=== PATIENT | male | born 1990 | race Two or more races ===

== ENCOUNTER 2019-03-11 14:41 | Emergency (ER) | payer BC ==
[~2019-03-11] VITALS: Ht 172.7 cm; Wt 71.2 kg
[2019-03-11 19:49] LABS: BASOPHILS # (AUTO) 0.05 x10^3/uL (0-0.1); BASOPHILS % (AUTO) 1 % (0-1); EOSINOPHILS # (AUTO) 0.05 x10^3/uL (0-0.4); EOSINOPHILS % (AUTO) 1 % (1-7); LYMPHOCYTES # (AUTO) 1.14 x10^3/uL (1-3.4); LYMPHOCYTES % (AUTO) 11 % (22-44); MD NO; MEAN CORPUSCULAR HGB CONC 33.1 g/dL (33.2-36.2); MEAN CORPUSCULAR VOLUME 90.8 fL (81-97); MEAN PLATELET VOLUME 10.1 fL (7.4-10.4); MONOCYTES # (AUTO) 0.51 x10^3/uL (0.2-0.8); MONOCYTES % (AUTO) 5 % (2-9); NEUTROPHILS # (AUTO) 8.37 x10^3/uL (1.8-6.8); NEUTROPHILS % (AUTO) 83 % (42-75); PLATELET COUNT 195 x10^3/uL (130-400); RED BLOOD COUNT 5.44 x10^6/uL (4.38-5.82); RED CELL DISTRIBUTION WIDTH 14.6 % (9.4-14.8)
[2019-03-11 20:00] LABS: ALBUMIN 4.6 g/dL (3.4-5.0); ANION GAP 7 mmol/L (5-15); CALCIUM 9.6 mg/dL (8.5-10.1); CHLORIDE 107 mmol/L (98-107); CREATININE 1.12 mg/dL (0.7-1.3)
[2019-03-11 20:04] LABS: TROPONIN I < 0.015 ng/mL (0.000-0.045)
--- NOTE | 2019-03-11 21:40 | NUR ---
[facility] PT C/O PALPITATIONS AFTER WORKING OUT FOR THE LAST FEW DAYS. PT DENIES CP. PT BEING EXAMINED BY DR. TIWARI.
[2019-03-11 21:41] VITALS: BP 115/85
== END 2019-03-11 21:54 | disposition other institution (70) ==
LOC: ED 21:48
DX: R00.2 Palpitations (principal); R06.00 Dyspnea, unspecified
CPT/HCPCS: 36415; 80048; 82040; 84484; 85025; 93005; 99284

== ENCOUNTER 2019-06-16 15:00 | Emergency (ER) | payer BC ==
[~2019-06-16] VITALS: Ht 172.7 cm; Wt 67.5 kg
[2019-06-16 15:54] LABS: BASOPHILS # (AUTO) 0.03 x10^3/uL (0-0.1); BASOPHILS % (AUTO) 1 % (0-1); EOSINOPHILS # (AUTO) 0.04 x10^3/uL (0-0.4); EOSINOPHILS % (AUTO) 1 % (1-7); LYMPHOCYTES % (AUTO) 15 % (22-44); MD NO; MEAN CORPUSCULAR HEMOGLOBIN 30.1 pg (27.5-34.5); MEAN CORPUSCULAR HGB CONC 33.7 g/dL (33.2-36.2); MEAN CORPUSCULAR VOLUME 89.5 fL (81-97); MEAN PLATELET VOLUME 10.5 fL (7.4-10.4); MONOCYTES # (AUTO) 0.31 x10^3/uL (0.2-0.8); MONOCYTES % (AUTO) 5 % (2-9); NEUTROPHILS # (AUTO) 5.33 x10^3/uL (1.8-6.8); NEUTROPHILS % (AUTO) 79 % (42-75); PLATELET COUNT 176 x10^3/uL (130-400); RED BLOOD COUNT 5.68 x10^6/uL (4.38-5.82)
[2019-06-16 15:58] LABS: ALANINE AMINOTRANSFERASE 19 U/L (12-78); ALBUMIN 4.6 g/dL (3.4-5.0); ANION GAP 8 mmol/L (5-15); CALCIUM 9.7 mg/dL (8.5-10.1); CHLORIDE 106 mmol/L (98-107); CREATININE 1.21 mg/dL (0.7-1.3)
[2019-06-16 16:00] LABS: ALKALINE PHOSPHATASE 82 U/L (45-117); BILIRUBIN,TOTAL 2.5 mg/dL (0.2-1.0); TOTAL PROTEIN 8.7 g/dL (6.4-8.2)
--- NOTE | 2019-06-16 16:07 | NUR ---
PT IN US. WILL BE BROUGHT TO ROOM 9 AFTER.
--- NOTE | 2019-06-16 16:35 | NUR ---
PT IN ROOM FOR US.
--- NOTE | 2019-06-16 16:45 | NUR ---
THIS IS A 29 YO M W/ C/O STERNAL AND LT SIDED DISCOMFORT THAT STARTED FRIDAY. PT REPORTS HE WENT TO AND THEY TOLD HIM HE HAD AN ABNORMAL EKG. IN ROOM AND REPORTS HIS EKG HERE IS NORMAL. PT FAMILY ANXIOUS ABOUT RESULTS. PT RESTING ON [employer] W/ CALL LIGHT IN REACH, CONNECTED TO MONITORING. DENIES FURTHER NEEDS AT THIS TIME.
[2019-06-16 16:47] VITALS: BP 130/85
--- NOTE | 2019-06-16 17:13 | NUR ---
URINE COLLECTED AND SENT TO LAB.
[2019-06-16 17:16] LABS: TROPONIN I < 0.015 ng/mL (0.000-0.045)
[2019-06-16 17:19] LABS: MICROSCOPIC NOT IND
[2019-06-16 17:23] LABS: CULTURE INDICATED? NO
--- NOTE | 2019-06-16 17:38 | NUR ---
ALL TESTS RESULTED. PT IS UP FOR RECHECK AT THIS TIME.
--- NOTE | 2019-06-16 17:47 | NUR ---
TO COME TALK TO PT BEFORE DC.
--- NOTE | 2019-06-16 18:53 | NUR ---
REVIEWED RAD AND LAB RESULTS EXTENSIVELY W/ PT AND SIGNIFICANT OTHER. PT VERBALIED UNDERSTANING O DC INSTRUCTIONS. AMBULATED W/ A STEADY GAIT.
== END 2019-06-16 18:55 | disposition home or self-care (01) ==
LOC: ED 16:52
DX: R07.89 Other chest pain (principal); I51.7 Cardiomegaly; R10.12 Left upper quadrant pain
CPT/HCPCS: 36415; 71046; 76700; 80053; 81003; 83690; 84484; 85025; 93005; 99285